=== PATIENT | female | born 1995 | race Caucasian/White ===

== ENCOUNTER 2016-12-11 10:54 | Outpatient (CLI) | payer MEDICAID | END 2016-12-11 23:59 | DX: Z13.9 Encounter for screening, unspecified (principal) ==

== ENCOUNTER 2019-12-17 17:38 | Outpatient (CLI) | payer MEDICAID ==
--- NOTE | 2019-12-18 08:15 | Ultrasound Report ---
Reason: TEST POSITIVE Procedure Date: 12/17/2019 Accession Number: [id number] / [id number] Procedure: US - OB First Trimester CPT Code: Final Report FULL RESULT: EXAM: FIRST TRIMESTER OBSTETRIC ULTRASOUND (Less than 11 weeks) EXAM DATE: 12/17/2019 07:30 PM. CLINICAL HISTORY: TEST POSITIVE. LMP: 09/21/2019. COMPARISONS: None. TECHNIQUE: Transabdominal and transvaginal ultrasound examination with static image documentation. CLINICAL DATES: EGA 12 weeks 3 days with DEMAR 06/27/2020 based on LMP/ . ASSESSMENT: Gestational Sac: Single intrauterine. Mean gestational sac diameter: 57 mm = Embryo: CRL (crown-rump length) 53 mm = 11 weeks 6 days. Cardiac activity: 166 beats per minute. Yolk sac: 6 mm. Amniotic fluid: Not accurately assessed at this gestational age. Early placenta: Not visible at this gestational age. Other: No perigestational fluid collection demonstrated. MATERNAL STRUCTURES: Uterus: Anteverted/ . Unremarkable. Cervix: Closed. Right Ovary/Adnexa: The ovary measures 2.2 x 1.9 x 2.6 cm, volume 5.9 cc. Unremarkable. Left Ovary/Adnexa: The ovary measures 2.5 x 1.4 x 2.9 cm, volume 3.1 cc. 1.4 cm corpus iliopsoas Unremarkable. Free Fluid: None. Other: None. IMPRESSION: 1. Single viable intrauterine at EGA 11 weeks 6 days with DEMAR 07/01/2020 based on crown-rump length, which is concordant with clinical dates. RADIA
== END 2019-12-17 17:39 | disposition home or self-care (01) ==
LOC: DI 17:38
PROVIDERS: ATTEND Obstetrics & Gynecology
DX: Z32.01 Encounter for pregnancy test, result positive (principal)
CPT/HCPCS: 76801; 76817

== ENCOUNTER 2020-01-06 08:00 | Outpatient (CLI) | payer MEDICAID ==
[2020-01-06 14:41] LABS: MUDS CUTOFF CONCENTRATIONS CUTOFF CONC BELOW:
[2020-01-06 14:59] LABS: BILIRUBIN,URINE NEGATIVE (NEGATIVE); GLUCOSE, URINE (UA) NEGATIVE (NEGATIVE); KETONES,URINE (UA) NEGATIVE (NEGATIVE); LEUKOCYTE ESTERASE, URINE TRACE (NEGATIVE); NITRITE,URINE NEGATIVE (NEGATIVE); OCCULT BLOOD,URINE MODERATE (NEGATIVE); PROTEIN,URINE NEGATIVE (NEGATIVE); UROBILINOGEN,URINE 0.2 (NORMAL) E.U./dL (NORMAL)
[2020-01-06 15:13] LABS: AMPHETAMINE SCREEN,URINE NEGATIVE (NEGATIVE); BACTERIA,URINE None Seen /HPF (None Seen); BENZODIAZEPINES SCREEN, URINE NEGATIVE (NEGATIVE); CLARITY,URINE CLEAR (CLEAR); COCAINE SCREEN URINE NEGATIVE (NEGATIVE); METHADONE SCREEN, URINE NEGATIVE (NEGATIVE); METHAMPHETAMINES SCREEN, URINE NEGATIVE (NEGATIVE); OPIATE SCREEN, URINE NEGATIVE (NEGATIVE); OXYCODONE SCREEN, URINE NEGATIVE (NEGATIVE); PROPOXYPHENE SCREEN, URINE NEGATIVE (NEGATIVE); RBC,URINE 0-5 /HPF (0-5); SQUAMOUS EPITHELIAL CELL,UR MOD Squamous (<= Few); TRICYCLIC ANTIDEPRESSANT,URINE NEGATIVE (NEGATIVE)
== END 2020-01-06 23:59 | disposition home or self-care (01) ==
LOC: LAB.R 08:00
PROVIDERS: ATTEND Obstetrics & Gynecology
DX: Z36.89 Encounter for other specified antenatal screening (principal)
CPT/HCPCS: 80306; 81001; 87086

== ENCOUNTER 2020-02-04 11:54 | Outpatient (CLI) | payer MEDICAID ==
[2020-02-04 21:20] LABS: TRICHOMONAS VAGINALIS DNA NEGATIVE (NEGATIVE)
== END 2020-02-04 23:59 | disposition home or self-care (01) ==
LOC: LAB.R 11:54
PROVIDERS: ATTEND Nurse Practitioner Obstetrics & Gynecology
DX: Z11.3 Encounter for screening for infections with a predominantly sexual mode of transmission (principal)
CPT/HCPCS: 87491; 87591; 87661

== ENCOUNTER 2020-02-04 12:13 | Outpatient (CLI) | payer MEDICAID ==
[2020-02-04 12:40] LABS: BASOPHILS % (AUTO) 0.3 %; EOSINOPHILS # (AUTO) 0.1 10^3/uL (0.0-0.7); EOSINOPHILS % (AUTO) 0.9 %; LYMPHOCYTES # (AUTO) 1.4 10^3/uL (1.5-3.5); LYMPHOCYTES % (AUTO) 15.5 %; MEAN CORPUSCULAR HEMOGLOBIN 27.4 pg (27.0-31.0); MEAN CORPUSCULAR HGB CONC 32.5 g/dL (32.0-36.0); MEAN CORPUSCULAR VOLUME 84.1 fL (81.0-99.0); MEAN PLATELET VOLUME 8.1 fL (7.9-10.8); MONOCYTES # (AUTO) 0.6 10^3/uL (0.0-1.0); MONOCYTES % (AUTO) 7.1 %; NEUTROPHILS # (AUTO) 6.8 10^3/uL (1.5-6.6); NEUTROPHILS % (AUTO) 75.4 %; PLT - PLATELET COUNT 331 10^3/uL (130-450); RED BLOOD COUNT 4.02 10^6/uL (4.20-5.40); RED CELL DISTRIBUTION WIDTH 13.8 % (12.0-15.0)
[2020-02-06 12:40] LABS: HIV AG/AB 4TH GEN NON-REACTIVE (NON-REACTIVE)
[2020-02-06 14:44] LABS: HEPATITIS B SURFACE ANTIGEN NON-REACTIVE (NON-REACTIVE); HEPATITIS C ANTIBODY NON-REACTIVE (NON-REACTIVE)
== END 2020-02-04 12:14 | disposition home or self-care (01) ==
LOC: LAB 12:13
PROVIDERS: ATTEND Obstetrics & Gynecology
DX: Z36.89 Encounter for other specified antenatal screening (principal); Z36.0 Encounter for antenatal screening for chromosomal anomalies
CPT/HCPCS: 36415; 81511; 81599; 85025; 86592; 86762; 86803; 86850; 86900; 86901; 87340; 87389

== ENCOUNTER 2020-02-12 11:57 | Outpatient (CLI) | payer MEDICAID ==
--- NOTE | 2020-02-13 11:30 | Ultrasound Report ---
Reason: SUPERVISION OF 1ST , SECOND TRIMESTER Procedure Date: 02/12/2020 Accession Number: [id number] / [id number] Procedure: US - OB Detailed Eval CPT Code: Final Report FULL RESULT: EXAM: COMPLETE OBSTETRICAL ULTRASOUND EXAM DATE: 02/12/2020 02:00 PM. CLINICAL HISTORY: anatomic survey. LMP 09/21/2019. COMPARISON: OB FIRST TRIMESTER 12/17/2019 6:55 PM. TECHNIQUE: Real-time sonographic evaluation of the fetus performed by the chief optometry service. Multiple direct customer service representative static images were saved for review. DATING: Established EGA 20 weeks, 4 days with DEMAR 06/27/2020 based on assigned dating/LMP. EGA 21 weeks, 3 days with DEMAR 07/01/2020 based on first ultrasound. EGA 19 weeks, 4 days with DEMAR 07/02/2020 based on the current ultrasound. GENERAL EVALUATION K[place] . Cardiac activity: 152 bpm. movement: Visualized. Presentation: Breech Placenta: Posterior position. No evidence for previa. Umbilical cord: 3 vessel cord. Central placental cord origin. Amniotic fluid: Subjectively normal. MVP 4.7 cm. NOE 12.0 cm. BIOMETRY Bi-Parietal Diameter (BPD): 4.6 cm, 19 weeks, 6 days Head Circumference (HC): 17.3 cm, 19 weeks, 6 days Abdominal Circumference (AC): 14.8 cm, 20 weeks, 1 day Femur Length (FL): 3.1 cm, 19 weeks, 4 days Estimated Weight: 316 g, 13th percentile for 20 weeks, 4 days. ANATOMY The intracranial structures, profile, face/nose/lips, 4 chamber heart and left ventricular outflow tracts, stomach, abdominal wall and cord insertion, diaphragm, kidneys, bladder, and extremities were visualized and demonstrate no abnormality. Anterolisthesis or contour deformity of a lower thoracic vertebral body, question vertebral dysplasia/anomaly. Right ventricular outflow tract was not well seen. MATERNAL STRUCTURES Uterus: Unremarkable. Cervix: Long and closed. Transabdominal length 5.1 cm. Right ovary/adnexa: Unremarkable. Left ovary/adnexa: Unremarkable. Free fluid: None. IMPRESSION: 1. Kaba live intrauterine with gestational age 20 weeks, 4 days based on 06/27/2020. 2. Estimated weight is within expected limits for assigned dating. Estimated weight is at 13th percentile relative to LMP. Of note, DEMAR on current ultrasound 07/02/2020 is within 1 day of prior ultrasound. Appropriate interval growth. 3. 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 Question butterfly vertebra, hemivertebra or other etiology. The right ventricular outlet tract was not optimally imaged due to positioning, however remainder survey was unremarkable. Recommend maternal medicine consult. RADINavneet The call report notification system was initiated by Dr. Jeb Mascorro at 11:20 AM on 02/13/2020. The above call report findings were discussed with Sharri Pierce by Dr. Jeb Mascorro at 11:24 AM on 02/13/2020.
== END 2020-02-12 11:58 | disposition home or self-care (01) ==
LOC: DI 11:57
PROVIDERS: ATTEND Nurse Practitioner Obstetrics & Gynecology
DX: Z34.02 Encounter for supervision of normal first pregnancy, second trimester (principal)
CPT/HCPCS: 76811

== ENCOUNTER 2020-03-30 13:53 | Outpatient (CLI) | payer MEDICAID ==
[2020-03-30 17:45] LABS: HGB - HEMOGLOBIN 9.4 g/dL (12.0-16.0); MEAN CORPUSCULAR HEMOGLOBIN 25.8 pg (27.0-31.0); MEAN CORPUSCULAR HGB CONC 30.8 g/dL (32.0-36.0); MEAN CORPUSCULAR VOLUME 83.6 fL (81.0-99.0); MEAN PLATELET VOLUME 8.6 fL (7.9-10.8); RED BLOOD COUNT 3.65 10^6/uL (4.20-5.40); RED CELL DISTRIBUTION WIDTH 13.8 % (12.0-15.0); WHITE BLOOD COUNT 10.2 x10^3/uL (4.8-10.8)
== END 2020-03-30 23:59 | disposition home or self-care (01) ==
LOC: LAB.WCP 13:53
PROVIDERS: ATTEND Obstetrics & Gynecology
DX: Z34.90 Encounter for supervision of normal pregnancy, unspecified, unspecified trimester (principal)
CPT/HCPCS: 36415; 82950; 85027; 86850

== ENCOUNTER 2020-06-01 08:00 | Outpatient (CLI) | payer MEDICAID ==
[2020-06-01 21:43] LABS: TRICHOMONAS VAGINALIS DNA NEGATIVE (NEGATIVE)
== END 2020-06-01 23:59 | disposition home or self-care (01) ==
LOC: LAB.R 08:00
PROVIDERS: ATTEND Advanced Practice Midwife
DX: Z34.90 Encounter for supervision of normal pregnancy, unspecified, unspecified trimester (principal); Z11.3 Encounter for screening for infections with a predominantly sexual mode of transmission; Z36.85 Encounter for antenatal screening for Streptococcus B
CPT/HCPCS: 87491; 87591; 87661; 87797

== ENCOUNTER 2020-06-29 11:36 | Outpatient (CLI) | payer MEDICAID | END 2020-06-29 23:59 | disposition home or self-care (01) | LOC: LAB.R 11:36 | PROVIDERS: ATTEND Advanced Practice Midwife | DX: Z34.90 Encounter for supervision of normal pregnancy, unspecified, unspecified trimester (principal); Z36.85 Encounter for antenatal screening for Streptococcus B | CPT/HCPCS: 87797 ==

== ENCOUNTER 2020-07-05 11:24 | Outpatient (CLI) | payer MEDICAID ==
[2020-07-05 19:42] VITALS: BP 121/79
--- NOTE | 2020-07-05 19:55 | Labor Flowsheet ---
Labor Flowsheet Datetime Report Generated by CPN: 07/05/2020 19:54 Datetime: 07/04/2020 09:05 VITAL SIGNS NBP Sys/Vero/Mean (mmHg): 115 : 80 : 86 Pulse: 79 Datetime: 07/03/2020 17:15 SpO2 (%): 99 Datetime: 07/02/2020 09:16 Temperature (C): 37.4 Datetime: 07/02/2020 07:46 PAIN Pain Scale: 4 Datetime: 07/02/2020 07:30 MEDICATIONS Pitocin (milliunits): Started @ 500 Datetime: 07/02/2020 07:28 Stage of : Recovery Datetime: 07/02/2020 07:27 ASSESSMENT A Monitor Mode: External US Variability: Moderate 6-25 bpm Comments: unable to determine baseline due to pushing Datetime: 07/02/2020 07:19 Contraction Comments: pt pushing spontaneously, feeling pressure Datetime: 07/02/2020 07:16 Vital Sign Comments: BP cuff cycled while pushing LaborFlag: Labor Datetime: 07/02/2020 07:15 UTERINE ACTIVITY Monitor Mode: External Quality: Strong Pattern: Normal: <= 5 Contractions in 10 Minutes Resting Tone (Palpate): Relaxed FHR Baseline Rate : 160 Accelerations: None Decelerations: Variable Category: Category II Oxygen Method: Room Air Datetime: 07/02/2020 07:09 Communication Comments: This RN assuming care from M Brandee RN. Report received Datetime: 07/02/2020 07:00 Frequency (min): 1-2 Duration (sec): 30-100 FHR Baseline Changes: Tachycardia Datetime: 07/02/2020 06:45 Monitor Interventions for UA: [place] Adjusted Datetime: 07/02/2020 06:39 PATIENT CARE IV/Blood Work: IV Bolus Started Datetime: 07/02/2020 06:33 Patient Care Comments: grab bar and sheet Datetime: 07/02/2020 06:23 I/O Interventions: Ervin Cath Inserted Datetime: 07/02/2020 06:12 Patient Position/Activity: Left Lateral Datetime: 07/02/2020 05:24 STAGE 2 Pushing: Coached on Pushing Datetime: 07/02/2020 05:22 VAGINAL EXAM Dilatation (cm): 10.0 Effacement (%): 100 Exam by: P[place] CNM Datetime: 07/02/2020 03:59 Vaginal Bleeding: Normal Show Cervix, Consistency: Soft Cervix, Position: Anterior Vaginal Exam Comments: lip Datetime: 07/02/2020 02:54 COMMUNICATION Communication: Provider at Bedside Datetime: 07/02/2020 02:29 Provider Notified (Name): CNM Butch Notification Reason: Status Update; Labor Status Datetime: 07/02/2020 02:26 Station: 0 Datetime: 07/02/2020 00:30 Actions for Decelerations: Side to Side; Sterile Vaginal Exam Datetime: 07/01/2020 23:46 Monitor Interventions for FHR: Ultrasound Adjusted Datetime: 07/01/2020 23:41 Pain Presence: None/Denies Datetime: 07/01/2020 22:06 Anesthesia Level Check: T10- Umbilicus Datetime: 07/01/2020 21:15 Epidural Procedure Other: Single Dose Datetime: 07/01/2020 20:57 Epidural Procedure: Test Dose Datetime: 07/01/2020 20:55 PROCEDURE TIME OUT Procedure Verify: Correct Patient Identity; Correct Side and Site are Marked; Accurate Procedure Co nsent Form; Agreement on Procedure to be Done; Correct Patient Position ANESTHESIA Anesthesia Plans: Epidural Epidural Positioning: Sitting Anesthesia Comments: lidocaine Datetime: 07/01/2020 19:39 Pain Type: Contraction Pain Location: Abdomen; Back Pain Relief Measures: Comfort Measures Pain Coping: Breathing Through Contractions MATERNAL ASSESSMENT Level of Consciousness: Alert Headache: Denies Breath Sounds, Left: Clear and Equal Breath Sounds, Right: Clear and Equal Nausea/Vomiting: Denies RUQ Epigastric Pain: Denies Comfort Measures: Breathing/Relaxation Datetime: 07/01/2020 19:03 Respirations: 18 Datetime: 07/01/2020 17:45 Membranes Rupture Method: Spontaneous Amniotic Fluid Color: Clear Amniotic Fluid Amount: Large Membrane Comments: SROM poosible forebag. SROM at 0350 today which was confirmed with ROM + Datetime: 07/01/2020 13:05 Pain Assessment Comments: wanting to try something else before taking miso. pump set up in room for nipple stimulation. education given Datetime: 07/01/2020 12:53 Provider Reviewed Strip: Yes
== END 2020-07-05 12:10 | disposition home or self-care (01) ==
LOC: WFO 11:24 → OBS 11:28 → WFO 12:10
PROVIDERS: ATTEND Advanced Practice Midwife
DX: Z00.00 Encounter for general adult medical examination without abnormal findings (principal)

== ENCOUNTER 2022-04-15 08:00 | Outpatient (CLI) | payer MEDICAID ==
[2022-04-15 22:03] LABS: BACTERIAL VAGINOSIS DNA NEGATIVE (NEGATIVE); CANDIDA GLABRATA DNA NEGATIVE (NEGATIVE); CANDIDA GROUP DNA NEGATIVE (NEGATIVE); CANDIDA KRUSEI DNA NEGATIVE (NEGATIVE); TRICHOMONAS VAGINALIS DNA NEGATIVE (NEGATIVE)
[2022-04-15 22:41] LABS: CHLAMYDIA TRACHOMATIS DNA NEGATIVE (NEGATIVE); NEISSERIA GONORRHOEAE DNA NEGATIVE (NEGATIVE)
== END 2022-04-15 23:59 | disposition home or self-care (01) ==
LOC: LAB.N 08:00
PROVIDERS: ATTEND Physician Assistant Medical
DX: N76.0 Acute vaginitis (principal)
CPT/HCPCS: 81514; 87491; 87591; 87661

== ENCOUNTER 2022-05-15 18:37 | Outpatient (CLI) | payer MEDICAID ==
--- NOTE | 2022-05-16 10:25 | Ultrasound Report ---
PROCEDURE: Pelvic w/Transvaginal INDICATIONS: PELVIC PAIN TECHNIQUE: Real-time scanning was performed of the pelvic organs, with image documentation. Additional endovagi nal scanning was necessary due to incomplete visualization of the adnexal and endometrial structures by transabdominal scanning. COMPARISON: None. FINDINGS: Uterus: Uterus is anteverted and normal in size at 7.9 x 4.8 x 5.5 cm. The myometrium is homogeneou s. The endometrium measures 10.7 mm in combined thickness. No focal uterine mass Ovaries: The right ovary measures 4.1 x 2.7 x 4.4 cm, with a calculated ovarian volume of 25.2 cc. The left ovary measures 3.2 x 1.9 x 2.3 cm, with a calculated ovarian volume of 7 cc. The ovaries talbert ve a normal sonographic appearance. Less than 12 follicles can be seen in each ovary. No adnexal ma sses are seen. Other: No pathologic free abdominal or pelvic fluid. IMPRESSION: Negative examination. Reviewed by: Tara Wallace MD on 05/16/2022 10:24 AM PDT Approved by: Tara Wallace MD on 05/16/2022 10:24 AM PDT Station ID: [id number]
== END 2022-05-15 18:38 | disposition home or self-care (01) ==
LOC: DI 18:37
PROVIDERS: ATTEND Physician Assistant Medical
DX: R10.2 Pelvic and perineal pain (principal)

== ENCOUNTER 2023-07-19 08:38 | Outpatient (CLI) | payer OTHER, MEDICAID ==
--- NOTE | 2023-07-19 12:53 | XRAY Report ---
PROCEDURE: Shoulder 3 View RT INDICATIONS: strain of unspecified muscle, fascia and tendon at the shoulder TECHNIQUE: 3 views of the shoulder were acquired. COMPARISON: None. FINDINGS: Bones: No fractures or dislocations. No suspicious bony lesions. Visualized ribs appear intact. Soft tissues: No suspicious soft tissue calcifications. IMPRESSION: No acute bony abnormality. If pain persists with conservative management, consider repeat radiographs in 10-14 days or cross-sectional imaging. Reviewed by: Michael Garcia MD on 07/19/2023 12:51 PM PDT Approved by: Michael Garcia MD on 07/19/2023 12:51 PM PDT Station ID: [id number]
== END 2023-07-19 08:39 | disposition home or self-care (01) ==
LOC: DI 08:38
PROVIDERS: ATTEND Registered Nurse
DX: S46.911A Strain of unspecified muscle, fascia and tendon at shoulder and upper arm level, right arm, initial encounter (principal)

== ENCOUNTER 2023-09-14 08:00 | Outpatient (CLI) | payer MEDICAID ==
--- NOTE | 2023-09-14 12:53 | XRAY Report ---
PROCEDURE: Shoulder 1 View RT INDICATIONS: RIGHT SHOULDER PAIN TECHNIQUE: 1 views of the shoulder were acquired. COMPARISON: X-ray shoulder 07/19/2023 FINDINGS: Bones: No fractures or dislocations. No suspicious bony lesions. Visualized ribs appear intact. Soft tissues: No suspicious soft tissue calcifications. The visualized lungs are within normal limi ts. IMPRESSION: No acute bony abnormality. Reviewed by: Julisa Campos MD on 09/14/2023 12:52 PM PDT Approved by: Julisa Campos MD on 09/14/2023 12:52 PM PDT Station ID: [id number]
== END 2023-09-14 23:59 | disposition home or self-care (01) ==
LOC: DI.WOS 08:00
PROVIDERS: ATTEND Physician Assistant Surgical
DX: M25.511 Pain in right shoulder (principal)

== ENCOUNTER 2023-09-14 09:30 | Outpatient (CLI) | payer MEDICAID | END 2023-09-14 09:31 | disposition critical access hospital (66) | LOC: EMS 09:30 | DX: R07.89 Other chest pain (principal); R42 Dizziness and giddiness; R06.02 Shortness of breath | CPT/HCPCS: A0425; A0427; A0999 ==

== ENCOUNTER 2023-09-14 09:35 | Emergency (ER) | payer MEDICAID ==
[2023-09-14 09:54] VITALS: O2SAT 100
--- NOTE | 2023-09-14 10:24 | ED Physician Documentation ---
PD HPI CHEST PAIN - Stated complaint Stated Complaint: RAPID HR/CP - Chief complaint Chief Complaint: Cardiac - History obtained from History obtained from: Patient - History of Present Illness Timing - onset: How many minutes ago (she was at Ortho office to have shoulder pain evaluated and felt lightheaded, fast heart rate when got up from waiting room chair. HR noted 102. She had some chest discomfort. Has had this occur somewhat frequently for weeks or months with getting up quickly. No exertional CP/dyspnea.), Today Timing - onset during: Other (just getting up from seated awhile.) Timing - duration: Minutes Timing - details: Abrupt onset, Now resolved Quality: Pressure, Tightness Location: Substernal Associated symptoms: Shortness of air, Feeling faint / dizzy. No: Diaphoresis, Nausea, Cough Similar symptoms before: No diagnosis (has had similar symptoms fairly often the past weeks/months, increasingly often.) Review of Systems Constitutional: denies: Fever, Chills Nose: denies: Rhinorrhea / runny nose, Congestion Throat: denies: Sore throat Respiratory: denies: Cough GI: denies: Nausea, Vomiting, Diarrhea, Bloody / black stool : denies: Discharge, Missed period Neurologic: reports: Near syncope. denies: Syncope, Seizure, Headache PD PAST MEDICAL HISTORY - Past Medical History Cardiovascular: None Respiratory: None Neuro: None Endocrine/Autoimmune: None GI: None : None Musculoskeletal: None Derm: None - Past Surgical History Past Surgical History: No - Present Medications Home Medications: Ambulatory Orders Medication Instructions Recorded Confirmed Ferrous Gluconate 324 mg PO DAILY 30 Days #30 tablet 09/14/23 cephALEXin [Keflex] 500 mg PO TID #15 cap 09/14/23 - Allergies Allergies/Adverse Reactions: Allergies Allergy/AdvReac Type Severity Reaction Status Date / Time Penicillins Allergy Unknown Verified 09/14/23 09:51 - Social History Does the pt smoke?: No Smoking Status: Never smoker Does the pt drink ETOH?: No Does the pt have substance abuse?: No PD ED PE NORMAL - Vitals Vital signs reviewed: Yes - General General: Alert and oriented X 3, No acute distress, Well developed/nourished - Neck Neck: Supple, no meningeal sign, No adenopathy, Thyroid normal - Cardiac Cardiac: RRR, No murmur - Respiratory Respiratory: Clear bilaterally - Abdomen Abdomen: Soft, Non tender - Derm Derm: Normal color, Warm and dry - Extremities Extremities: No edema, No calf tenderness / cord - Neuro Neuro: Alert and oriented X 3, No motor deficit, No sensory deficit, Normal speech Results - Vitals Vitals: Oxygen O2 Source Room air - EKG (time done) 09:43 EKG releavant findings:: EKG personally interpreted by author of this note. Relevant findings are: Rate: Rate (enter#) (91) Rhythm: NSR [place]: Normal Intervals: Normal AR QRS: Normal Ischemia: Normal ST segments. No: ST elevation c/w ischemia, ST depression Compare to prior EKG: Old EKG unavailable - Labs Labs: Microbiology 09/14/23 12:24 Urine Culture - Final Urine,Random LESS THAN 10,000 COLONIES/ML polymicrobial growth including potential pathogens. This is suggestive of skin or other contamination. Laboratory Tests 09/14/23 09/14/23 09/14/23 11:45 11:45 12:24 WBC 5.1 RBC 5.22 Hgb 11.7 L Hct 38.8 MCV 74.3 L MCH 22.4 L MCHC 30.2 L RDW 16.9 H Plt Count 454 H MPV 8.1 Neut # (Auto) 3.4 Lymph # (Auto) 1.3 L Owen # (Auto) 0.4 Eos # (Auto) 0.1 Baso # (Auto) 0.1 Absolute Nucleated RBC 0.00 Nucleated RBC % 0.0 Sodium 139 Potassium 4.3 Chloride 108 Carbon Dioxide 23 Anion Gap 8.0 BUN 11 Creatinine 0.8 Estimated GFR (MDRD) 85 L Glucose 90 Calcium 9.8 Magnesium 2.0 Total Bilirubin 0.3 AST 14 ALT 12 Alkaline Phosphatase 50 Total Protein 8.0 Albumin 4.8 Globulin 3.2 Albumin/Globulin Ratio 1.5 Lipase 30 TSH 1.96 Urine Color YELLOW Urine Clarity CLEAR Urine pH 7.0 Ur Specific [place] 1.010 Urine Protein NEGATIVE Urine Glucose (UA) NEGATIVE Urine Ketones NEGATIVE Urine Occult Blood MODERATE H Urine Nitrite NEGATIVE Urine Bilirubin NEGATIVE Urine Urobilinogen 0.2 (NORMAL) Ur Leukocyte Esterase SMALL H Urine RBC 11-25 H Urine WBC 6-10 H Ur Squamous Epith Cells FEW Squamous Urine Bacteria None Seen Ur Microscopic Review INDICATED Urine Culture Comments INDICATED Urine HCG, Qual NEGATIVE - Rads (name of study) chest xray Relevant Findings:: Prelim report reviewed, EMP independent interpretation of test (no acute process seen. normal heart size. ) PD Medical Decision Making - ED course Complexity details: reviewed results (No ECHO available today. I did bedside US myself and the heart function appeared normal contractility, no enlargement of heart and no effusion. Labs are showing minimal anemia, likely low iron indices. Normal lytes, suguar, TSH. UA suggestive of UTI. HCG neg.), considered differential (postural lightheaded and fast heart rate with some chest discomfort. As a single episode, can be many factors. However she has had this occurring fairly often for months or so. Can get labs. ECG. CXR.), d/w patient Reviewed Lab Results: ormal labs with exception of minimal anemia and possible UTI. Can have her take extra iron. Keflex pending culture. Given repeated similar episodes I would wonder about other conditions and whether eval for POTS through primary care or referral to Cardio. Departure - Departure Disposition: 01 Home, Self Care Clinical Impression: Postural lightheadedness, UTI (urinary tract infection), Anemia Condition: Stable Record reviewed to determine appropriate education?: Yes Instructions: ED Near Syncope Unkn Follow-Up: Mikki Del Valle PA-C [Provider Admit Priv/Credential] - Prescriptions: Ferrous Gluconate 324 mg PO DAILY 30 Days #30 tablet cephALEXin [Keflex] 500 mg PO TID #15 cap Comments: Stay well-hydrated. You are mildly anemic and looks to be likely iron deficient. I would suggest an iron supplement daily for the next month or so. See if that helps with some of your symptoms. Be sure to stay well-hydrated though it sounds like you already do. Otherwise your blood test did not show any electrolyte abnormalities nor signs of thyroid disorder nor diabetes. Your chest x-ray is clear. Your EKG is normal and a limited ultrasound of your heart shows what appears to be normal dynamic function and no effusion. This was not a formal ultrasound of course. Contact your primary care regarding any further testing. They might consider a referral to a lap checker for any further evaluation. Possibilities would be a condition called POTS (postural orthostatic tachycardia syndrome) which can be treated with some medications if the feeling is that is the condition. Typically it would fall to your primary care or potentially a specialist to see if any more testing is needed. Forms: PCP List Discharge Date/Time: 09/14/23 13:20
--- NOTE | 2023-09-14 11:09 | XRAY Report ---
PROCEDURE: Chest 1 View X-Ray INDICATIONS: chest pain TECHNIQUE: One view of the chest was acquired. COMPARISON: None FINDINGS: Surgical changes and devices: None. Lungs and pleura: No pleural effusions or pneumothorax. Lungs are clear. Mediastinum: Mediastinal contours appear normal. Heart size is normal. Bones and chest wall: No suspicious bony lesions. Overlying soft tissues appear unremarkable. IMPRESSION: No acute cardiopulmonary findings Reviewed by: Sameer Jiang MD on 09/14/2023 10:07 AM RAJWINDER Approved by: Sameer Jiang MD on 09/14/2023 10:07 AM RAJWINDER Station ID: [id number]
[2023-09-14] MEDS ORDERED: SODIUM CHLORIDE 0.9% 1,000 ML IV STA (11:34)
[2023-09-14 11:51] LABS: BASOPHILS # (AUTO) 0.1 10^3/uL (0.0-0.1); BASOPHILS % (AUTO) 1.2 %; EOSINOPHILS # (AUTO) 0.1 10^3/uL (0.0-0.7); EOSINOPHILS % (AUTO) 1.2 %; HCT - HEMATOCRIT 38.8 % (37.0-47.0); HGB - HEMOGLOBIN 11.7 g/dL (12.0-16.0); LYMPHOCYTES # (AUTO) 1.3 10^3/uL (1.5-3.5); LYMPHOCYTES % (AUTO) 24.6 %; MEAN CORPUSCULAR HEMOGLOBIN 22.4 pg (27.0-31.0); MEAN CORPUSCULAR HGB CONC 30.2 g/dL (32.0-36.0); MEAN CORPUSCULAR VOLUME 74.3 fL (81.0-99.0); MEAN PLATELET VOLUME 8.1 fL (7.9-10.8); MONOCYTES # (AUTO) 0.4 10^3/uL (0.0-1.0); MONOCYTES % (AUTO) 6.9 %; NEUTROPHILS # (AUTO) 3.4 10^3/uL (1.5-6.6); NEUTROPHILS % (AUTO) 66.1 %; PLT - PLATELET COUNT 454 10^3/uL (130-450); RED BLOOD COUNT 5.22 10^6/uL (4.20-5.40); RED CELL DISTRIBUTION WIDTH 16.9 % (12.0-15.0); WHITE BLOOD COUNT 5.1 x10^3/uL (4.8-10.8)
[2023-09-14 12:12] LABS: ALBUMIN 4.8 g/dL (3.2-5.5); ALBUMIN/GLOBULIN RATIO 1.5 (1.0-2.2); BILIRUBIN,TOTAL 0.3 mg/dL (0.2-1.0); CALCIUM 9.8 mg/dL (8.5-10.3); CREATININE 0.8 mg/dL (0.6-1.3); POTASSIUM 4.3 mmol/L (3.5-4.5)
[2023-09-14 12:26] LABS: THYROID STIMULATING HORMONE 1.96 uIU/mL (0.34-5.60)
[2023-09-14 12:31] LABS: BILIRUBIN,URINE NEGATIVE (NEGATIVE); GLUCOSE, URINE (UA) NEGATIVE (NEGATIVE); KETONES,URINE (UA) NEGATIVE (NEGATIVE); LEUKOCYTE ESTERASE, URINE SMALL (NEGATIVE); NITRITE,URINE NEGATIVE (NEGATIVE); OCCULT BLOOD,URINE MODERATE (NEGATIVE); PROTEIN,URINE NEGATIVE (NEGATIVE); UROBILINOGEN,URINE 0.2 (NORMAL) E.U./dL (NORMAL)
[2023-09-14 12:40] LABS: CLARITY,URINE CLEAR (CLEAR); HCG UR QUAL NEGATIVE
[2023-09-14 12:42] LABS: BACTERIA,URINE None Seen /HPF (None Seen); SQUAMOUS EPITHELIAL CELL,UR FEW Squamous (<= Few)
[2023-09-14 14:09] VITALS: BP 118/94
== END 2023-09-14 13:20 | disposition home or self-care (01) ==
LOC: EDUNIT# → ED 09:35
DX: N39.0 Urinary tract infection, site not specified (principal); D64.9 Anemia, unspecified; R42 Dizziness and giddiness
CPT/HCPCS: 36415; 80053; 81001; 81003; 81025; 83690; 83735; 84443; 85025; 87086; 93005; 99284

== ENCOUNTER 2023-09-28 09:16 | Outpatient (CLI) | payer OTHER, MEDICAID ==
--- NOTE | 2023-09-28 16:48 | MRI Report ---
PROCEDURE: SHOULDER WO - RT INDICATIONS: STRAIN OF SHOULDER TECHNIQUE: Noncontrast oblique coronal T2 fast spin echo with fat saturation, oblique sagittal T1 spin echo and T2 fast spin echo with fat saturation, axial T1 spin echo and T2 fast spin echo with fat saturation t hrough the shoulder. COMPARISON: Shoulder radiograph dated 09/14/2023 and 07/19/2023. FINDINGS: Image quality: Excellent. Rotator cuff: Low to moderate grade bursal surface partial-thickness involving distal supraspinatus a t its insertion on humeral head is seen extending to muscular tendinous junction. Distal infraspinatu s tendinosis is noted. The subscapularis tendon is intact. No rotator cuff muscle atrophy on sagitta l images. Bones and bursae: No bone marrow contusions or fractures. Nonspecific subcortical cystic changes are seen in anterolateral humeral head near distal infraspinatus tendon insertion. No acromioclavicular joint degeneration. The acromion demonstrates conventional anatomy, without an os acromiale. Small a mount of joint effusion and subacromial subdeltoid bursal fluid is seen, no gross loose bodies. Capsule and soft tissues: In the absence of intra-articular contrast, the labrum and glenohumeral li gaments appear intact. The long head of the biceps tendon demonstrates normal location and morpholog y. The rotator interval appears normal, without fibrosis. The coracohumeral ligament is normal in t hickness. IMPRESSION: 1. Low to moderate grade bursal surface partial-thickness involving distal supraspinatus extending to muscular tendinous junction. Distal infraspinatus tendinosis. No full-thickness rotator cuff tendon rupture. 2. No marrow edema. No fracture or dislocation. Small amount of joint effusion and subacromial subdel toid bursal fluid, no gross bodies. 3. No evidence of focal labral tear. Reviewed by: Yousuf Downey MD on 09/28/2023 4:46 PM PDT Approved by: Yousuf Downey MD on 09/28/2023 4:46 PM PDT Station ID: [id number]
== END 2023-09-28 09:17 | disposition home or self-care (01) ==
LOC: DI 09:16
PROVIDERS: ATTEND Nurse Practitioner
DX: M75.111 Incomplete rotator cuff tear or rupture of right shoulder, not specified as traumatic (principal); M25.411 Effusion, right shoulder

== ENCOUNTER 2023-12-31 17:51 | Emergency (ER) | payer MEDICAID ==
[2023-12-31 18:07] VITALS: O2SAT 100
--- NOTE | 2023-12-31 18:52 | Ultrasound Report ---
PROCEDURE: Pelvic w/Doppler Limited INDICATIONS: pelvic pain, B TECHNIQUE: Real-time transabdominal scanning was performed of the pelvic organs, with image documentation. Dopp ler interrogation was performed of the ovaries bilaterally. COMPARISON: Pelvic ultrasound 05/15/2022. FINDINGS: Uterus: Uterus is anteverted and normal in size at 8.7 x 4.1 x 5.5 cm. The myometrium is heterogene ous. The endometrium measures 13 mm in combined thickness. Ovaries: The right ovary measures 2.3 x 1.9 x 2.5cm, with a calculated ovarian volume of 5.7 cc. T he left ovary measures 3 x 2.2 x 3.1 cm, with a calculated ovarian volume of 10.5 cc. Appropriate bl ood flow to the ovaries with Doppler interrogation. Less than 12 follicles can be seen in each ovar y. No adnexal masses are seen. No cystic lesions measuring greater than 3 cm. Flows into the bilater al ovaries. Other: No pathologic free abdominal or pelvic fluid. IMPRESSION: No evidence of torsion at this time. Normal transabdominal appearance of the ovaries. Reviewed by: Michael Garcia MD on 12/31/2023 6:50 PM PST Approved by: Michael Garcia MD on 12/31/2023 6:50 PM PST Station ID: [id number]
[2023-12-31 18:59] LABS: BASOPHILS # (AUTO) 0.1 10^3/uL (0.0-0.1); BASOPHILS % (AUTO) 0.8 %; EOSINOPHILS # (AUTO) 0.1 10^3/uL (0.0-0.7); HCT - HEMATOCRIT 38.3 % (37.0-47.0); LYMPHOCYTES # (AUTO) 2.1 10^3/uL (1.5-3.5); LYMPHOCYTES % (AUTO) 28.9 %; MEAN CORPUSCULAR HGB CONC 31.3 g/dL (32.0-36.0); MEAN CORPUSCULAR VOLUME 82.9 fL (81.0-99.0); MEAN PLATELET VOLUME 7.9 fL (7.9-10.8); MONOCYTES # (AUTO) 0.6 10^3/uL (0.0-1.0); MONOCYTES % (AUTO) 7.8 %; NEUTROPHILS # (AUTO) 4.5 10^3/uL (1.5-6.6); NEUTROPHILS % (AUTO) 61.4 %; PLT - PLATELET COUNT 325 10^3/uL (130-450); RED BLOOD COUNT 4.62 10^6/uL (4.20-5.40); RED CELL DISTRIBUTION WIDTH 14.6 % (12.0-15.0); WHITE BLOOD COUNT 7.3 x10^3/uL (4.8-10.8)
[2023-12-31 19:12] LABS: ALBUMIN 4.4 g/dL (3.2-5.5); ALBUMIN/GLOBULIN RATIO 1.4 (1.0-2.2); BILIRUBIN,TOTAL 0.3 mg/dL (0.2-1.0); CALCIUM 9.6 mg/dL (8.5-10.3); CREATININE 0.6 mg/dL (0.6-1.3); POTASSIUM 3.8 mmol/L (3.5-4.5); TOTAL PROTEIN 7.5 g/dL (6.4-8.9)
[2023-12-31 21:40] LABS: BILIRUBIN,URINE NEGATIVE (NEGATIVE); GLUCOSE, URINE (UA) NEGATIVE (NEGATIVE); KETONES,URINE (UA) 40 mg/dL (NEGATIVE); LEUKOCYTE ESTERASE, URINE NEGATIVE (NEGATIVE); NITRITE,URINE NEGATIVE (NEGATIVE); OCCULT BLOOD,URINE MODERATE (NEGATIVE); PH,URINE 6.5 PH (5.0-7.5); PROTEIN,URINE NEGATIVE (NEGATIVE); UROBILINOGEN,URINE 0.2 (NORMAL) E.U./dL (NORMAL)
[2023-12-31 21:44] LABS: CLARITY,URINE CLEAR (CLEAR); HCG UR QUAL NEGATIVE
[2023-12-31 21:51] LABS: BACTERIA,URINE Rare /HPF (None Seen); MUCUS,URINE Few Strands; RBC,URINE TNTC /HPF (0-5); SQUAMOUS EPITHELIAL CELL,UR RARE Squamous (<= Few); YEAST,URINE PRESENT
--- NOTE | 2023-12-31 22:12 | ED Physician Documentation ---
History of Present Illness - Stated complaint Stated Complaint: ABD CRAMPING,BACK PX - Chief complaint Chief Complaint: Abd Pain - History obtained from History obtained from: Patient - History of Present Illness Timing: Yesterday Pain level max: 5 Pain level now: 5 - Additonal information Additional information: Patient is a 28-year-old female who presents to the emergency department for lower abdominal cramping and pain, started yesterday and is worsened today. She has had vaginal discharge. No change in sexual partners in the last year. Review of Systems Constitutional: denies: Fever, Chills Nose: denies: Rhinorrhea / runny nose, Congestion GI: denies: Vomiting, Diarrhea : reports: Discharge. denies: Dysuria, Frequency, Hesitancy Skin: denies: Rash Musculoskeletal: denies: Neck pain, Back pain Neurologic: denies: Headache PD PAST MEDICAL HISTORY - Past Medical History Past Medical History: Yes Cardiovascular: None Respiratory: None Neuro: None Endocrine/Autoimmune: None GI: None : None Musculoskeletal: None Derm: None - Past Surgical History Past Surgical History: No - Present Medications Home Medications: Ambulatory Orders Medication Instructions Recorded Confirmed metroNIDAZOLE [Flagyl] 500 mg PO BID #14 tablet 12/31/23 - Allergies Allergies/Adverse Reactions: Allergies Allergy/AdvReac Type Severity Reaction Status Date / Time Penicillins Allergy Unknown Verified 12/31/23 17:59 - Social History Does the pt smoke?: No Smoking Status: Never smoker Does the pt drink ETOH?: No Does the pt have substance abuse?: No PD ED PE NORMAL - Vitals Vital signs reviewed: Yes - General General: Alert and oriented X 3, No acute distress - HEENT HEENT: PERRL, Moist mucous membranes - Neck Neck: Supple, no meningeal sign - Cardiac Cardiac: RRR, Strong equal pulses - Respiratory Respiratory: No respiratory distress, Clear bilaterally - Abdomen Abdomen: Soft, Non tender, Non distended - Female Female : Pt declined - Back Back: No CVA TTP, No spinal TTP - Derm Derm: Warm and dry - Neuro Neuro: Alert and oriented X 3 - Psych Psych: Normal mood, Normal affect Results - Vitals Vitals: Vital Signs - 24 hr 12/31/23 12/31/23 17:59 22:34 Temperature 36.8 C 36.8 C Heart Rate 96 58 L Respiratory 16 18 Rate Blood Pressure 130/87 H 117/70 O2 Saturation 100 100 Oxygen O2 Source Room air - Labs Labs: Laboratory Tests 12/31/23 12/31/23 12/31/23 18:55 18:55 21:35 WBC 7.3 RBC 4.62 Hgb 12.0 Hct 38.3 MCV 82.9 MCH 26.0 L MCHC 31.3 L RDW 14.6 Plt Count 325 MPV 7.9 Neut # (Auto) 4.5 Lymph # (Auto) 2.1 Garfield # (Auto) 0.6 Eos # (Auto) 0.1 Baso # (Auto) 0.1 Absolute Nucleated RBC 0.00 Nucleated RBC % 0.0 Sodium 137 Potassium 3.8 Chloride 104 Carbon Dioxide 25 Anion Gap 8.0 BUN 7 Creatinine 0.6 Estimated GFR (MDRD) 119 Glucose 82 Calcium 9.6 Total Bilirubin 0.3 AST 13 ALT 11 Alkaline Phosphatase 46 Total Protein 7.5 Albumin 4.4 Globulin 3.1 Albumin/Globulin Ratio 1.4 Lipase 14 Urine Color YELLOW Urine Clarity CLEAR Urine pH 6.5 Ur Specific [place] 1.025 Urine Protein NEGATIVE Urine Glucose (UA) NEGATIVE Urine Ketones 40 H Urine Occult Blood MODERATE H Urine Nitrite NEGATIVE Urine Bilirubin NEGATIVE Urine Urobilinogen 0.2 (NORMAL) Ur Leukocyte Esterase NEGATIVE Urine RBC TNTC H Urine WBC 4-5 Ur Squamous Epith Cells RARE Squamous Urine Bacteria Rare Urine Mucus Few Strands Urine Yeast PRESENT Ur Microscopic Review INDICATED Urine Culture Comments NOT INDICATED Urine HCG, Qual NEGATIVE C. glabrata (PCR) C. krusei (PCR) Maria Elena species DNA Chlam trachomat DNA PCR N.gonorrhoeae DNA (PCR) T. vaginalis (PCR) Bact Vaginosis (PCR) 12/31/23 12/31/23 22:28 22:28 WBC RBC Hgb Hct MCV MCH MCHC RDW Plt Count MPV Neut # (Auto) Lymph # (Auto) Garfield # (Auto) Eos # (Auto) Baso # (Auto) Absolute Nucleated RBC Nucleated RBC % Sodium Potassium Chloride Carbon Dioxide Anion Gap BUN Creatinine Estimated GFR (MDRD) Glucose Calcium Total Bilirubin AST ALT Alkaline Phosphatase Total Protein Albumin Globulin Albumin/Globulin Ratio Lipase Urine Color Urine Clarity Urine pH Ur Specific [place] Urine Protein Urine Glucose (UA) Urine Ketones Urine Occult Blood Urine Nitrite Urine Bilirubin Urine Urobilinogen Ur Leukocyte Esterase Urine RBC Urine WBC Ur Squamous Epith Cells Urine Bacteria Urine Mucus Urine Yeast Ur Microscopic Review Urine Culture Comments Urine HCG, Qual C. glabrata (PCR) NEGATIVE C. krusei (PCR) NEGATIVE Maria Elena species DNA NEGATIVE Chlam trachomat DNA PCR NEGATIVE N.gonorrhoeae DNA (PCR) NEGATIVE T. vaginalis (PCR) NEGATIVE TNP Bact Vaginosis (PCR) POSITIVE A - Rads (name of study) Pelvic ultrasound Relevant Findings:: Final report received, See rad report PD Medical Decision Making - ED course Complexity details: reviewed results, re-evaluated patient, considered differential, d/w patient ED course: No acute findings on pelvic ultrasound. Urinalysis does show yeast, discussed the pelvic examination, patient is chosen to self swab for bacterial vaginitis and STI. She was given a dose of Diflucan here and we will prescribe metronidazole for home. Patient is well-appearing, nontoxic. Afebrile. No evidence of PID. Abdomen is soft, nontender nondistended on serial exam. Randee ent counseled regarding signs and symptoms for which I believe and urgent re- evaluation would be necessary. Patient with good understanding of and agreement to plan and is comfortable going home at this time This document was made in part using voice recognition software. While efforts are made to proofread this document, sound alike and grammatical errors may occur. Patient is positive for bacterial vaginitis. We will continue current plan of care Departure - Departure Disposition: 01 Home, Self Care Clinical Impression: Pelvic pain in female, Vaginal yeast infection Condition: Good Instructions: ED Pelvic Pain UKO, ED Vaginosis Bacterial, ED Vaginal Infec Fungal Maria Elena Follow-Up: Mikki Del Valle PA-C [Primary Care Provider] - Within 1 week Prescriptions: metroNIDAZOLE [Flagyl] 500 mg PO BID #14 tablet Comments: Your prescriptions were sent to [facility] in [place]. We are treating you empirically for a yeast infection and bacterial vaginitis. We did send swabs but these will not be back until tomorrow. You are given a dose of Diflucan tonight and we will place you on Flagyl for tomorrow. Your pelvic ultrasound is normal as well as your laboratory testing. There is yeast on your urinalysis. If you are not improving in the next 24 to 48 hours or you worsen, please return for pelvic examination and further care. Forms: PCP List Discharge Date/Time: 12/31/23 22:39
[2023-12-31] MEDS: FLUCONAZOLE 100 MG TABLET PO STA (22:30)
[2023-12-31] MEDS: KETOROLAC 60 MG/2 ML VIAL IM STA (22:31)
[2023-12-31 22:44] VITALS: BP 117/70
[2024-01-01 00:10] LABS: BACTERIAL VAGINOSIS DNA POSITIVE (NEGATIVE); CANDIDA GLABRATA DNA NEGATIVE (NEGATIVE); CANDIDA GROUP DNA NEGATIVE (NEGATIVE); CANDIDA KRUSEI DNA NEGATIVE (NEGATIVE); TRICHOMONAS VAGINALIS DNA NEGATIVE (NEGATIVE)
[2024-01-01 01:19] LABS: CHLAMYDIA TRACHOMATIS DNA NEGATIVE (NEGATIVE); NEISSERIA GONORRHOEAE DNA NEGATIVE (NEGATIVE)
== END 2023-12-31 22:39 | disposition home or self-care (01) ==
LOC: ED 17:51
DX: B37.31 Acute candidiasis of vulva and vagina (principal); N76.0 Acute vaginitis; R10.2 Pelvic and perineal pain; Z88.0 Allergy status to penicillin
CPT/HCPCS: 36415; 80053; 81001; 81003; 81025; 81514; 83690; 85025; 87086; 87491; 87591; 87661; 93976; 96372; 99283; 99284

== ENCOUNTER 2024-03-06 08:00 | Outpatient (CLI) | payer MEDICAID ==
[2024-03-06 16:42] LABS: BILIRUBIN,URINE NEGATIVE (NEGATIVE); GLUCOSE, URINE (UA) NEGATIVE (NEGATIVE); KETONES,URINE (UA) NEGATIVE (NEGATIVE); LEUKOCYTE ESTERASE, URINE NEGATIVE (NEGATIVE); NITRITE,URINE NEGATIVE (NEGATIVE); OCCULT BLOOD,URINE MODERATE (NEGATIVE); PROTEIN,URINE NEGATIVE (NEGATIVE); UROBILINOGEN,URINE 0.2 (NORMAL) E.U./dL (NORMAL)
[2024-03-06 16:45] LABS: CLARITY,URINE CLEAR (CLEAR)
[2024-03-06 16:50] LABS: BACTERIA,URINE Rare /HPF (None Seen); MUCUS,URINE Moderate Strands; SQUAMOUS EPITHELIAL CELL,UR RARE Squamous (<= Few); WBC,URINE 0-3 /HPF (0-5)
== END 2024-03-06 23:59 | disposition home or self-care (01) ==
LOC: LAB.WC 08:00
PROVIDERS: ATTEND Nurse Practitioner
DX: Z34.80 Encounter for supervision of other normal pregnancy, unspecified trimester (principal)
CPT/HCPCS: 81001; 87086

== ENCOUNTER 2024-03-20 18:33 | Outpatient (CLI) | payer MEDICAID ==
--- NOTE | 2024-03-21 17:19 | Ultrasound Report ---
PROCEDURE: OB 1st Trimester INDICATIONS: POSITIVIE TEST OUTSIDE/PRIOR DATING DATA: Last menstrual period (LMP): 01/10/2024. LMP-based estimated date of delivery (DEMAR): 10/16/2024. First dating scan (date and location): 03/20/2024. Estimated date of delivery (DEMAR) from first dating scan: 10/17/2024. TECHNIQUE: Real-time scanning was performed of the fetus and maternal pelvic organs, with image documentation. COMPARISON: None. FINDINGS: Intrauterine gestational sac present. Embryo: Marmet-rump length measures 3.1 cm corresponding to 9 weeks 6 days Heart rate: 171 bpm. Other: 2 foci of subchorionic hemorrhage are present measuring 2.4 x 1.3 x 2.6 cm and 1.6 x 1.5 x 1.5 cm. Measurement variability in dating: +/- 4 weeks by LMP, +/- 7 days by mean sac diameter (use before 6 weeks gestation if crown-rump length not able to be measured), +/- 5 days by crown-rump length (6-12 weeks gestation). Maternal organs: Ovaries demonstrate a left corpus luteal cyst. IMPRESSION: Single intrauterine with gestational age measuring 9 weeks 6 days. 2 foci of subchorionic hemorrhage. Reviewed by: Julisa Campos MD on 03/21/2024 5:18 PM PDT Approved by: Julisa Campos MD on 03/21/2024 5:18 PM PDT Station ID: [id number]
== END 2024-03-20 18:34 | disposition home or self-care (01) ==
LOC: DI 18:33
PROVIDERS: ATTEND Nurse Practitioner
DX: O46.91 Antepartum hemorrhage, unspecified, first trimester (principal); Z3A.09 9 weeks gestation of pregnancy

== ENCOUNTER 2024-03-28 14:02 | Outpatient (CLI) | payer MEDICAID ==
[2024-03-28 17:54] LABS: BASOPHILS # (AUTO) 0.1 10^3/uL (0.0-0.1); BASOPHILS % (AUTO) 0.5 %; EOSINOPHILS # (AUTO) 0.1 10^3/uL (0.0-0.7); EOSINOPHILS % (AUTO) 0.7 %; HCT - HEMATOCRIT 32.6 % (37.0-47.0); HGB - HEMOGLOBIN 10.3 g/dL (12.0-16.0); LYMPHOCYTES % (AUTO) 20.3 %; MEAN CORPUSCULAR HEMOGLOBIN 25.9 pg (27.0-31.0); MEAN CORPUSCULAR HGB CONC 31.6 g/dL (32.0-36.0); MEAN CORPUSCULAR VOLUME 81.9 fL (81.0-99.0); MEAN PLATELET VOLUME 8.6 fL (7.9-10.8); MONOCYTES # (AUTO) 0.7 10^3/uL (0.0-1.0); MONOCYTES % (AUTO) 7.1 %; NEUTROPHILS % (AUTO) 71.1 %; PLT - PLATELET COUNT 417 10^3/uL (130-450); RED BLOOD COUNT 3.98 10^6/uL (4.20-5.40); RED CELL DISTRIBUTION WIDTH 14.2 % (12.0-15.0); WHITE BLOOD COUNT 9.8 x10^3/uL (4.8-10.8)
[2024-03-30 05:08] LABS: HBsAG SCREEN Negative (Negative)
[2024-03-30 09:07] LABS: HIV SCREEN 4TH GENERATION Non Reactive (Non Reactive)
[2024-03-30 10:07] LABS: VARICELLA-ZOSTER AB IGG <135 index (Immune >165)
== END 2024-03-28 14:03 | disposition home or self-care (01) ==
LOC: LAB.N 14:02
PROVIDERS: ATTEND Nurse Practitioner
DX: Z34.80 Encounter for supervision of other normal pregnancy, unspecified trimester (principal); Z36.89 Encounter for other specified antenatal screening
CPT/HCPCS: 36415; 85025; 86592; 86762; 86787; 86803; 87340; 87389

== ENCOUNTER 2024-03-29 14:24 | Outpatient (CLI) | payer MEDICAID | END 2024-03-29 14:25 | disposition home or self-care (01) | LOC: LAB.N 14:24 | PROVIDERS: ATTEND Nurse Practitioner | DX: Z34.80 Encounter for supervision of other normal pregnancy, unspecified trimester (principal); Z36.89 Encounter for other specified antenatal screening | CPT/HCPCS: 86850; 86900; 86901 ==

== ENCOUNTER 2024-04-11 08:00 | Outpatient (CLI) | payer MEDICAID ==
[2024-04-11 20:53] LABS: CHLAMYDIA TRACHOMATIS DNA NEGATIVE (NEGATIVE); NEISSERIA GONORRHOEAE DNA NEGATIVE (NEGATIVE); TRICHOMONAS VAGINALIS DNA NEGATIVE (NEGATIVE)
== END 2024-04-11 23:59 | disposition home or self-care (01) ==
LOC: LAB.WC 08:00
PROVIDERS: ATTEND Nurse Practitioner
DX: Z11.3 Encounter for screening for infections with a predominantly sexual mode of transmission (principal)
CPT/HCPCS: 87491; 87591; 87661

== ENCOUNTER 2024-06-04 08:41 | Outpatient (CLI) | payer MEDICAID ==
[2024-06-04 12:49] LABS: BASOPHILS % (AUTO) 0.4 %; EOSINOPHILS # (AUTO) 0.2 10^3/uL (0.0-0.7); EOSINOPHILS % (AUTO) 1.6 %; HCT - HEMATOCRIT 31.3 % (37.0-47.0); HGB - HEMOGLOBIN 9.4 g/dL (12.0-16.0); LYMPHOCYTES # (AUTO) 1.3 10^3/uL (1.5-3.5); LYMPHOCYTES % (AUTO) 14.2 %; MEAN CORPUSCULAR HEMOGLOBIN 24.9 pg (27.0-31.0); MEAN PLATELET VOLUME 8.6 fL (7.9-10.8); MONOCYTES # (AUTO) 0.7 10^3/uL (0.0-1.0); MONOCYTES % (AUTO) 7.8 %; NEUTROPHILS # (AUTO) 6.9 10^3/uL (1.5-6.6); PLT - PLATELET COUNT 373 10^3/uL (130-450); RED BLOOD COUNT 3.77 10^6/uL (4.20-5.40); RED CELL DISTRIBUTION WIDTH 14.7 % (12.0-15.0); WHITE BLOOD COUNT 9.1 x10^3/uL (4.8-10.8)
[2024-06-04 13:22] LABS: THYROID STIMULATING HORMONE 1.88 uIU/mL (0.34-5.60)
[2024-06-04 13:28] LABS: FERRITIN 5.1 ng/mL (11.0-306.8)
== END 2024-06-04 08:42 | disposition home or self-care (01) ==
LOC: LAB.N 08:41
PROVIDERS: ATTEND Nurse Practitioner
DX: O99.891 Other specified diseases and conditions complicating pregnancy (principal); R55 Syncope and collapse; Z36.89 Encounter for other specified antenatal screening
CPT/HCPCS: 36415; 81511; 82728; 84439; 84443; 85025

== ENCOUNTER 2024-06-12 16:42 | Outpatient (CLI) | payer MEDICAID ==
--- NOTE | 2024-06-13 13:02 | Ultrasound Report ---
PROCEDURE: OB Anatomy Scan INDICATIONS: SUPERVISION OF NORMAL OUTSIDE/PRIOR DATING DATA: Last menstrual period (LMP): 01/10/2024. LMP-based estimated date of delivery (DEMAR): 10/16/2024. First dating scan (date and location): 03/20/2024. Estimated date of delivery (DEMAR) from first dating scan: 10/17/2024. The below data below was generated using the ultrasound DEMAR of 10/15/2024 TECHNIQUE: Real-time scanning was performed of the fetus, with image documentation and biometric measurements. Endovaginal scanning: Not performed. COMPARISON: OB ultrasound 03/20/2024 FINDINGS: General: A single living intrauterine gestation is present. Presentation: Variable Placenta: Placental position is anterior, without previa. Amniotic fluid index: 23.1 cm, 98th percentile for gestational age. Largest vertical pocket is 8.1 cm heart rate: 152 beats per minute. Maternal cervical canal: 4.1 cm long; normal length is 2.5 cm or more. biometrics: Biparietal diameter: 5.5 cm, 24 weeks 2 days, 99th percentile Head circumference: 21.8 cm, 23 weeks 6 days, 95th percentile Abdominal circumference: 18.6 cm, 23 weeks 3 days, 84th percentile Femur length: 3.7 cm, 21 weeks 4 days, 28th percentile Estimated gestational age from initial scan: 22 weeks 0 days Composite gestational age from present scan: 23 weeks 2 days Estimated weight and percentile: 537 g 84th percentile Measurement variability in biometric dating: +/- 10 days from 12-20 weeks gestation, +/- 2 weeks from 20-30 weeks gestation, +/- 3 weeks at 30 weeks gestation or later. Anatomic survey: Neuro: Ventricles are normal at less than 10 mm. Cisterna magna is normal at 3-11 mm. Cerebellum i s normal in size and morphology. Nuchal skin fold: Normal at less than 6 mm between 14 and 20 weeks gestational age. Face: Nose and lips, facial profile are not well seen. Spine: No evidence for spina bifida. Heart: 4-chambered heart is present, with normal right ventricular outflow tract. Left ventricular outflow tract is not well visualized. Diaphragm: Diaphragm is intact. Stomach: Left-sided stomach is present. Kidneys: No hydronephrosis. Normal is less than 5 mm in 2nd trimester, less than 7 mm in 3rd trimester. Cord: 3 vessel cord has orthotopic insertion. Bladder: Normal in size. Extremities: All 4 extremities are visualized. IMPRESSION: 1.Single live intrauterine . 2.Biparietal diameter and head circumference greater than the 95th percentile for gestational age. Fe ivone weight is at the 84th percentile for gestational age. 3.Borderline high amniotic fluid index of 23.1 cm within largest pocket of 8.1 cm. Correlate for deve loping polyhydramnios. 4. nose and lips, facial profile, and left ventricular outflow tracts are not well visualized. 5. anatomic survey is otherwise within normal limits Reviewed by: Kelby Hawkins MD on 06/13/2024 1:00 PM PDT Approved by: Kelby Hawkins MD on 06/13/2024 1:00 PM PDT Station ID: [id number]
== END 2024-06-12 16:43 | disposition home or self-care (01) ==
LOC: DI 16:42
PROVIDERS: ATTEND Nurse Practitioner
DX: Z34.82 Encounter for supervision of other normal pregnancy, second trimester (principal)

== ENCOUNTER 2024-07-15 17:18 | Outpatient (CLI) | payer MEDICAID ==
--- NOTE | 2024-07-16 09:31 | Ultrasound Report ---
PROCEDURE: OB Follow up INDICATIONS: SUPERVISION OF OUTSIDE/PRIOR DATING DATA: Last menstrual period (LMP): 01/10/2024. LMP-based estimated date of delivery (DEMAR): 10/16/2024. First dating scan (date and location): 03/20/2024. Estimated date of delivery (DEMAR) from first dating scan: 10/17/2024. The below data below was generated using the ultrasound DEMAR of 10/17/2024 TECHNIQUE: Real-time scanning was performed of the fetus, with image documentation and biometric measurements. Endovaginal scanning: Not performed. COMPARISON: 06/12/2024 FINDINGS: General: A single living intrauterine gestation is present. Presentation: Transverse Placenta: Placental position is anterior, without previa. Amniotic fluid index: 21.7 cm, 93rd percentile for gestational age. heart rate: 141 beats per minute. Maternal cervical canal: 6.4 cm long; normal length is 2.5 cm or more. biometrics: Biparietal diameter: 7.59 cm, 30 weeks 3 days, greater than 99.5 percentile Head circumference: 28.7 cm, 31 weeks 4 days, greater than 99.5 percentile Abdominal circumference: 24.5 cm, 28 weeks 5 days, 93.9 percentile Femur length: 5 cm, 26 weeks 6 days, 45.3 percentile Estimated gestational age from initial scan: 26 weeks 4 days Composite gestational age from present scan: 29 weeks 3 days Estimated weight and percentile: 1238.2 g, 97.4 percentile Measurement variability in biometric dating: +/- 10 days from 12-20 weeks gestation, +/- 2 weeks from 20-30 weeks gestation, +/- 3 weeks at 30 weeks gestation or more. Other: The nose/lips, profile and left ventricular outflow tract are visualized on today's exam. The se appear normal. IMPRESSION: Single living intrauterine at 26 weeks 4 days, DEMAR of 10/17/2024. Estimated weight of 1238 g, 97th percentile. The nose/lips, profile and left ventricular outflow tract are visualized on today's exam. These appe ar normal. Reviewed by: Pacheco Guerrero MD on 07/16/2024 9:29 AM PDT Approved by: Pacheco Guerrero MD on 07/16/2024 9:29 AM PDT Station ID: [id number]
== END 2024-07-15 17:19 | disposition home or self-care (01) ==
LOC: DI 17:18
PROVIDERS: ATTEND Nurse Practitioner
DX: Z34.82 Encounter for supervision of other normal pregnancy, second trimester (principal)

== ENCOUNTER 2024-07-17 12:50 | Outpatient (CLI) | payer MEDICAID ==
[2024-07-17 14:21] LABS: HCT - HEMATOCRIT 29.1 % (37.0-47.0); HGB - HEMOGLOBIN 8.7 g/dL (12.0-16.0); MEAN CORPUSCULAR HEMOGLOBIN 23.8 pg (27.0-31.0); MEAN CORPUSCULAR HGB CONC 29.9 g/dL (32.0-36.0); MEAN CORPUSCULAR VOLUME 79.7 fL (81.0-99.0); MEAN PLATELET VOLUME 8.4 fL (7.9-10.8); RED BLOOD COUNT 3.65 10^6/uL (4.20-5.40); WHITE BLOOD COUNT 10.3 x10^3/uL (4.8-10.8)
[2024-07-18 06:11] LABS: RPR Non Reactive (Non Reactive)
== END 2024-07-17 12:51 | disposition home or self-care (01) ==
LOC: LAB 12:50
PROVIDERS: ATTEND Nurse Practitioner
DX: Z34.80 Encounter for supervision of other normal pregnancy, unspecified trimester (principal)
CPT/HCPCS: 36415; 82950; 85027; 86592